=== PATIENT | male | born 1985 | race Caucasian/White ===

== ENCOUNTER 2021-05-16 06:03 | Emergency (ER) | payer MEDICAID, OTHER ==
[~2021-05-16] VITALS: Ht 177.8 cm; Wt 114.9 kg
[2021-05-16 06:26] VITALS: BP 137/92
== END 2021-05-16 08:49 | disposition home or self-care (01) ==
LOC: ER 06:03
DX: M79.604 Pain in right leg (principal); R22.41 Localized swelling, mass and lump, right lower limb; M25.561 Pain in right knee; Z88.8 Allergy status to other drugs, medicaments and biological substances
CPT/HCPCS: 99282; 99283

== ENCOUNTER 2021-10-09 11:27 | Emergency (ER) | payer MEDICAID, OTHER ==
[~2021-10-09] VITALS: Ht 180.3 cm; Wt 115.0 kg
[2021-10-09 11:28] VITALS: BP 139/81
[2021-10-09] MEDS ORDERED: ondansetron 4mg rapidly disintigrating tab PO ONE (13:50)
== END 2021-10-09 17:00 | disposition home or self-care (01) ==
LOC: ER 11:28
DX: R05.9 Cough, unspecified (principal); Z20.822 Contact with and (suspected) exposure to COVID-19; R11.0 Nausea; R10.9 Unspecified abdominal pain; Z88.5 Allergy status to narcotic agent
CPT/HCPCS: 87635; 99283; C9803